=== PATIENT | male | born 1995 | race Two or more races ===

== ENCOUNTER 2020-04-12 16:08 | Emergency (ER) | payer OTHER ==
[~2020-04-12] VITALS: Ht 182.9 cm; Wt 96.1 kg
[2020-04-12 16:10] VITALS: BP 124/75
--- NOTE | 2020-04-12 16:21 | NUR ---
ER PA WAS IN TO SEE PT.
--- NOTE | 2020-04-12 16:38 | NUR ---
D/C INSTRUCTIONS, MEDS & F/U APPT RV'WD WITH PT, HE VERBALIZES UNDERSTANDING. RX GIVEN X1 AND CALLED IN TO [facility]. PT AMBULATED OUT OF ED WITH GIRLFRIEND WITHOUT DIFFICULTY.
== END 2020-04-12 16:44 | disposition home or self-care (01) ==
LOC: ED 16:25
DX: J45.909 Unspecified asthma, uncomplicated (principal); Z76.0 Encounter for issue of repeat prescription
CPT/HCPCS: 99281